=== PATIENT | male | born 1970 | race Caucasian/White ===

== ENCOUNTER 2022-10-19 06:10 | Emergency (ER) | payer OTHER, SELFPAY ==
[2022-10-19 06:24] VITALS: BP 175/106; PULSE 108; RESP 16; TEMP 36.7; O2SAT 99; BMI 21.0
[2022-10-19] MEDS: Ketorolac Tromethamine 30 MG/ML VIAL IM (08:01)
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
[2022-10-19 08:49] VITALS: BP 156/93; PULSE 72; RESP 12; O2SAT 97
== END 2022-10-19 09:16 | disposition home or self-care (01) ==
PROVIDERS: Emergency Provider Student in an Organized Health Care Education/Training Program
DX: M54.41 Lumbago with sciatica, right side (principal)
CPT/HCPCS: 96372; 99283; 99284; J1885